=== PATIENT | female | born 1965 | race Caucasian/White ===

== ENCOUNTER → 2016-09-11 | Outpatient (CLI) | payer BC | LOC: KOH-I 10:00 | DX: R42 Dizziness and giddiness (principal); R26.2 Difficulty in walking, not elsewhere classified; R20.0 Anesthesia of skin; M50.320 Other cervical disc degeneration, mid-cervical region, unspecified level; M47.812 Spondylosis without myelopathy or radiculopathy, cervical region | CPT/HCPCS: 70551; 72141 ==